=== PATIENT | male | born 1955 | race Caucasian/White ===

== ENCOUNTER → 2021-07-31 | Outpatient (CLI) | payer MEDICARE | LOC: HEART 5 09:54 | DX: R06.00 Dyspnea, unspecified (principal) | CPT/HCPCS: 94010 ==

== ENCOUNTER 2022-03-13 20:46 | Emergency (ER) | payer MEDICARE | END 2022-03-14 00:54 | disposition left against medical advice (07) | LOC: ER1 20:46 | DX: Z53.21 Procedure and treatment not carried out due to patient leaving prior to being seen by health care provider (principal) ==